=== PATIENT | male | born 1940 | race Caucasian/White ===

== ENCOUNTER 2016-09-03 04:28 | Inpatient (IN) | payer OTHER ==
[~2016-09-03] VITALS: Ht 170.2 cm; Wt 110.6 kg
[2016-09-03 04:57] LABS: EOSINOPHIL (%) 0.6 % (0-5); EOSINOPHIL COUNT 0.1 K/uL (0-0.3); HEMATOCRIT 46.9 % (38.0-50.0); IMMATURE GRANULOCYTE (%) 0.3 % (0.0-0.7); INSTRUMENT ABS NEUTROPHIL CT 12.1 K/uL; LYMPHOCYTE COUNT 1.4 K/uL (1.0-2.8); MCH 32.1 PG (29.0-34.0); MCHC 32.6 G/DL (30.0-36.0); MCV 98.3 FL (86-99); MONOCYTE (%) 3.4 % (3-12); MONOCYTE COUNT 0.5 K/uL (0-0.8); NEUTROPHIL (%) 85.8 % (45-76); NEUTROPHIL COUNT 12.1 K/uL (1.8-6.4); RBC DIS.WIDTH-CV 13.2 % (11.8-14.6); RBC DIS.WIDTH-SD 47.5 % (39-53); RED BLOOD COUNT 4.77 M/uL (4.00-5.50); WHITE BLOOD COUNT 14.1 K/uL (4.1-10.2)
[2016-09-03] MEDS ORDERED: FENOFIBRATE160 M1 PO (04:58)
[2016-09-03] MEDS ORDERED: CITALOPRAM HBR20 MG PO (04:58)
[2016-09-03] MEDS ORDERED: LOVASTATIN40 MG PO (05:01)
[2016-09-03 05:02] LABS: BASE EXCESS -1.8 mEq/L (-3 to +3); BICARBONATE 24.3 mEq/L (22-26); CARBOXY HGB 2.1 % (0-5); COMMENTS - BLOOD GASES A+C+; DEVICE NRM; METHEMOGLOBIN 1.1 % (0-1.5); O2 FLOW 15 L/MIN; PCO2 45 mm Hg (35-45); PO2 72 mm Hg (80-100); SITE RR; TOTAL RESP RATE 20 resp/min; pH 7.34 (7.35-7.45)
[2016-09-03] MEDS ORDERED: ATENOLOL25 MG PO (05:02)
[2016-09-03] MEDS ORDERED: BENAZEPRIL HCL40 MG PO (05:02)
[2016-09-03] MEDS ORDERED: AMLODIPINE BESYL5 MG PO (05:03)
[2016-09-03] MEDS ORDERED: FISH OIL 1,0001 EAC7 PO (05:04)
[2016-09-03] MEDS ORDERED: ASPIRIN325 MG PO (05:04)
[2016-09-03] MEDS ORDERED: VITAMIN C500 M1 PO (05:05)
[2016-09-03 05:06] LABS: CHLORIDE 106 mEq/L (99-109); POTASSIUM 4.7 mEq/L (3.7-5.4); SODIUM 140 mEq/L (136-147)
[2016-09-03] MEDS ORDERED: MULTI-VITAMIN-1 EACH PO (05:06)
[2016-09-03 05:07] LABS: INTER. NORMALIZED RATIO 1.1; PROTHROMBIN TIME 11.1 (9.2-11.2)
[2016-09-03 05:08] LABS: GLUCOSE 184 mg/dL (70-99)
[2016-09-03] MEDS ORDERED: FLOVENT 44120 INHALA IH (05:08)
[2016-09-03 05:09] LABS: ANION GAP 8 MEQ/L (2-14)
[2016-09-03 05:10] LABS: PTT 18.6 (25-32); TOTAL BILIRUBIN 0.6 mg/dL (0.0-1.0)
[2016-09-03] MEDS ORDERED: TRAMADOL HCL50 MG PO (05:10)
[2016-09-03 05:11] LABS: ALKALINE PHOSPHATASE 34 IU/L (3-129)
[2016-09-03] MEDS ORDERED: IPRATROPIU0.2 MG/1 M IH (05:11)
[2016-09-03 05:12] LABS: GFR ESTIMATE (CALCULATED) 33 mL/min/
[2016-09-03 05:13] LABS: UREA NITROGEN (BUN) 25 mg/dL (9-23)
[2016-09-03 05:15] LABS: LIPASE 39 U/L (1.0-51.0)
[2016-09-03 05:18] LABS: TROP-I INTERPRETATION NEGATIVE; TROPONIN-I < 0.01 ng/mL (0.0-0.30)
[2016-09-03 06:12] LABS: PLAT.SUFFICIENCY ADEQUATE; PLATELET CLUMPS PRESENT - PLATELET C
[2016-09-03 09:00] VITALS: BP 116/57
[2016-09-03 11:18] LABS: POINT-OF-CARE METER ID UU13113781
[2016-09-03 11:37] VITALS: BP 122/59
[2016-09-03] MEDS ORDERED: DULERA 100 MCG/13 GM IH (12:17)
[2016-09-03] MEDS ORDERED: DUONEB 2.5-0.5 M3 ML AEROSOL (12:17)
[2016-09-03] MEDS ORDERED: GLUCOSAMINE1000 MG PO (12:18)
[2016-09-03 16:41] VITALS: BP 118/70
[2016-09-03 19:10] VITALS: BP 120/60
[2016-09-03 20:29] LABS: POINT-OF-CARE METER ID UU14174216
[2016-09-04] VITALS (7 sets, daily range): BP systolic 123–152; BP diastolic 58–89
[2016-09-04 05:38] LABS: HEMATOCRIT 37.5 % (38.0-50.0); MCH 32.1 PG (29.0-34.0); MCHC 32.3 G/DL (30.0-36.0); MCV 99.5 FL (86-99); MEAN PLAT.VOLUME 11.1 uM^3 (9.0-12.4); PLATELET COUNT 205 K/uL (156-360); RBC DIS.WIDTH-CV 13.5 % (11.8-14.6); WHITE BLOOD COUNT 15.2 K/uL (4.1-10.2)
[2016-09-04 05:39] LABS: RED BLOOD COUNT 3.77 M/uL (4.00-5.50)
[2016-09-04 05:52] LABS: ANION GAP 8 MEQ/L (2-14); CHLORIDE 108 MEQ/L (99-109); GFR ESTIMATE (CALCULATED) 45 mL/min/; GLUCOSE 160 mg/dL (70-99); POTASSIUM 4.7 MEQ/L (3.7-5.4); SAMPLE HEMOLYSIS CHECK 0; SAMPLE ICTERIC CHECK 0; SAMPLE LIPEMIA CHECK 0; SODIUM 139 MEQ/L (136-147); UREA NITROGEN (BUN) 25 mg/dL (9-23)
[2016-09-04 11:19] LABS: POINT-OF-CARE METER ID UU13113781
[2016-09-04 16:32] LABS: POINT-OF-CARE METER ID UU14174216
[2016-09-05 06:16] LABS: EOSINOPHIL (%) 0 % (0-5); HEMATOCRIT 36.5 % (38.0-50.0); IMMATURE GRANULOCYTE COUNT 0.1 K/uL; INSTRUMENT ABS NEUTROPHIL CT 11.9 K/uL; LYMPHOCYTE COUNT 0.5 K/uL (1.0-2.8); MCH 32.4 PG (29.0-34.0); MCHC 32.9 G/DL (30.0-36.0); MCV 98.6 FL (86-99); MEAN PLAT.VOLUME 10.7 uM^3 (9.0-12.4); MONOCYTE (%) 4.8 % (3-12); MONOCYTE COUNT 0.6 K/uL (0-0.8); NEUTROPHIL (%) 90.6 % (45-76); NEUTROPHIL COUNT 11.9 K/uL (1.8-6.4); PLATELET COUNT 210 K/uL (156-360); RBC DIS.WIDTH-CV 13.6 % (11.8-14.6); RBC DIS.WIDTH-SD 49.5 % (39-53); WHITE BLOOD COUNT 13.1 K/uL (4.1-10.2)
[2016-09-05 06:43] LABS: ANION GAP 6 MEQ/L (2-14); CHLORIDE 107 MEQ/L (99-109); GFR ESTIMATE (CALCULATED) 45 mL/min/; GLUCOSE 153 mg/dL (70-99); POTASSIUM 4.8 MEQ/L (3.7-5.4); SAMPLE HEMOLYSIS CHECK 0; SAMPLE ICTERIC CHECK 0; SAMPLE LIPEMIA CHECK 0; SODIUM 140 MEQ/L (136-147); UREA NITROGEN (BUN) 32 mg/dL (9-23)
[2016-09-05 08:33] VITALS: BP 116/58
[2016-09-05 11:13] LABS: POINT-OF-CARE METER ID UU13113725
[2016-09-05 16:13] VITALS: BP 142/66
[2016-09-05 21:41] LABS: POINT-OF-CARE METER ID UU13113725
[2016-09-05 23:39] VITALS: BP 115/62
[2016-09-06 06:23] LABS: POINT-OF-CARE METER ID UU13113725
[2016-09-06 06:45] VITALS: BP 132/64
[2016-09-06 07:03] LABS: ANION GAP 7 MEQ/L (2-14); CHLORIDE 102 MEQ/L (99-109); GFR ESTIMATE (CALCULATED) 42 mL/min/; GLUCOSE 117 mg/dL (70-99); POTASSIUM 4.2 MEQ/L (3.7-5.4); SAMPLE HEMOLYSIS CHECK 0; SAMPLE ICTERIC CHECK 0; SAMPLE LIPEMIA CHECK 0; SODIUM 140 MEQ/L (136-147); UREA NITROGEN (BUN) 35 mg/dL (9-23)
[2016-09-06 11:13] LABS: POINT-OF-CARE METER ID UU13113725
[2016-09-06 15:04] VITALS: BP 130/60
[2016-09-06 16:34] LABS: POINT-OF-CARE METER ID UU13113725
[2016-09-07 00:48] VITALS: BP 132/70
[2016-09-07 04:31] VITALS: BP 139/73
[2016-09-07 05:47] LABS: POINT-OF-CARE METER ID UU13113725
[2016-09-07 06:50] VITALS: BP 156/74
[2016-09-07 07:04] LABS: EOSINOPHIL (%) 0.9 % (0-5); EOSINOPHIL COUNT 0.1 K/uL (0-0.3); HEMATOCRIT 40.2 % (38.0-50.0); IMMATURE GRANULOCYTE (%) 0.9 % (0.0-0.7); IMMATURE GRANULOCYTE COUNT 0.1 K/uL; MCH 31.6 PG (29.0-34.0); MCHC 32.8 G/DL (30.0-36.0); MCV 96.2 FL (86-99); MEAN PLAT.VOLUME 10.6 uM^3 (9.0-12.4); MONOCYTE (%) 10.3 % (3-12); MONOCYTE COUNT 0.7 K/uL (0-0.8); NEUTROPHIL (%) 73.2 % (45-76); PLATELET COUNT 244 K/uL (156-360); RBC DIS.WIDTH-CV 13.1 % (11.8-14.6); RBC DIS.WIDTH-SD 46.9 % (39-53); RED BLOOD COUNT 4.18 M/uL (4.00-5.50); WHITE BLOOD COUNT 6.9 K/uL (4.1-10.2)
[2016-09-07 07:24] LABS: ANION GAP 7 MEQ/L (2-14); CHLORIDE 101 MEQ/L (99-109); GFR ESTIMATE (CALCULATED) 45 mL/min/; GLUCOSE 92 mg/dL (70-99); POTASSIUM 3.9 MEQ/L (3.7-5.4); SAMPLE HEMOLYSIS CHECK 0; SAMPLE ICTERIC CHECK 0; SAMPLE LIPEMIA CHECK 0; SODIUM 141 MEQ/L (136-147); UREA NITROGEN (BUN) 32 mg/dL (9-23)
[2016-09-07] MEDS ORDERED: PREDNISONE20 MG PO (11:33)
[2016-09-07 11:45] LABS: POINT-OF-CARE METER ID UU13113725
[2016-09-07] MEDS ORDERED: CEFDINIR300 MG PO (11:56)
== END 2016-09-07 13:56 | disposition home or self-care (01) | DRG 871 ==
LOC: EME 04:28 → EDOF 06:17 → 4EAST 06:17 → EDOF 06:38 → 4EAST 08:33 → 5EAST 09-04 16:35
PROVIDERS: Emergency Medicine; Hospitalist; Internal Medicine
DX: A41.9 Sepsis, unspecified organism (principal); J96.01 Acute respiratory failure with hypoxia; J18.9 Pneumonia, unspecified organism; N17.9 Acute kidney failure, unspecified; E11.22 Type 2 diabetes mellitus with diabetic chronic kidney disease; E66.01 Morbid (severe) obesity due to excess calories; I25.2 Old myocardial infarction; E78.5 Hyperlipidemia, unspecified; E87.2 Acidosis; I12.9 Hypertensive chronic kidney disease with stage 1 through stage 4 chronic kidney disease, or unspecified chronic kidney disease; J44.0 Chronic obstructive pulmonary disease with (acute) lower respiratory infection; J44.1 Chronic obstructive pulmonary disease with (acute) exacerbation; N18.9 Chronic kidney disease, unspecified; Z87.891 Personal history of nicotine dependence; R00.0 Tachycardia, unspecified; R09.89 Other specified symptoms and signs involving the circulatory and respiratory systems; R19.7 Diarrhea, unspecified; G47.30 Sleep apnea, unspecified
CPT/HCPCS: 36600; 71010; 71020; 80048; 80053; 81003; 82803; 82948; 83605; 83690; 83880; 84484; 85025; 85027; 85610; 85730; 87040; 87070; 87205; 93005; 94640; 94640 76; 94760; 94799; 99202; 99281; 99285; J0696; J1650; J1815; J1940; J1956; J2920; J2930; J7030; J7050; J7120; J7512